=== PATIENT | male | born 1940 | race Caucasian/White ===

== ENCOUNTER 2016-05-22 21:54 | Emergency (ER) | payer OTHER ==
[2016-05-22 22:05] VITALS: BP 141/68
--- NOTE | 2016-05-22 22:26 | PROVIDER DOCUMENTATION ---
Addendum entered and electronically signed by Jackelin Cook Scribe 05/22/16 23: 16: Progress - PLAN OF CARE/RESULTS Progress/Plan/Lab Results: plan of care: labs Orders Category Date Time Status D-DIMER PL [COAG] Stat Lab 05/22/16 22:15 Completed Laboratory Tests 05/22/16 22:15 D-Dimer 0.26 Vital Signs - 24 hr 05/22/16 21:58 Temperature 98 F Pulse Rate 80 Respiratory 18 Rate Blood Pressure 141/68 O2 Sat by Pulse 98 Oximetry Pt given results and will be d/c home w/o rx to follow up with PCP. Pt verbally understood instructions. PT remained clinically stable throughout the course of the ED stay and will return if symptoms worsen. Original Note: HPI-Musculoskeletal Pain/Inj - GENERAL Source: patient - HX OF PRESENT ILLNESS-MUSKULOSKELTAL Quality of Pain: reports: aching Severity in ED: mild Onset/Duration: other (1.5 weeks) Timing: still present Modifying Factors: improves with: nothing Any recent injury?: No Locality of Occurance: Home Similar Symptoms Previously?: No Recently seen or treated by another doctor?: No - LOWER EXTREMITY PAIN/INJURY Lower Extremities Pain: leg: left Context / Method of Injury: reports: unknown Associated Symptoms: reports: denies symptoms <Jackelin Cook - Last Filed: 05/22/16 22:20> <Rafael Lechuga - Last Filed: 05/22/16 23:07> - GENERAL Chief Complaint: Extremity Pain Stated Complaint: POSS BLOOD CLOT Time Seen by Provider: 05/22/16 22:20 - HX OF PRESENT ILLNESS-MUSKULOSKELTAL Nature of Presenting Problem: 76 year old M presents to the ED with a cc of left calf pain with an onset of 1.5 weeks ago. Pt states that the pain resolved this past weekend and then returned this afternoon. Pt has a hx of DVTs. PT saw PCP the day after pain began for URI symptoms but did not mention the leg pain. (Jackelin Cook) Review of Systems - Adult - REVIEW OF SYSTEMS - ADULT Constitutional: denies: chills, fever Eyes: reports: no symptoms reported Ears, Nose, Mouth & Throat: reports: no symptoms reported Cardiovascular: reports: no symptoms reported Respiratory: reports: no symptoms reported Gastrointestinal: denies: diarrhea, vomiting Genitourinary: reports: no symptoms reported Musculoskeletal: reports: muscle aches. denies: muscle weakness Integumentary: denies: skin sores/ulcer, skin thickening Neurological: reports: no symptoms reported Psychiatric: reports: no symptoms reported Endocrine: reports: no symptoms reported Hematologic/Lymphatic: reports: no symptoms reported Allergic/Immunologic: reports: no symptoms reported All Other Systems: Reviewed and Negative <Jackelin Cook - Last Filed: 05/22/16 22:20> Past History - Adult - PAST MEDICAL HISTORY-ADULT Review of Records: reports: Nursing Assessment Review, Medications Reviewed Major Childhood Illnesses: reports: denies history Cardiovascular: reports: blood clots Musculoskeletal: reports: cancer (right breast ) Other Conditions: reports: other (blood clots) - PRIOR SURGERIES/PROCEDURES Surgical/Procedure History: reports: hernia repair, breast (right breast ) - IMMUNIZATION STATUS Childhood Immunizations: See Nurse Assessment Flu Vaccine: See Nurse Assessment - SOCIAL HISTORY Smoking: non-smoker Substance Use: none/never Alcohol Use Frequency: never <Jackelin Cook - Last Filed: 05/22/16 22:20> Physical Exam-Injury Related - Physical Exam-Injury Related Initial Vital Signs Reviewed: Yes General Appearance: appears well, alert, no apparent distress Respiratory: chest non-tender, lungs clear, normal breath sounds Cardiovascular: normal peripheral pulses, regular rate, rhythm, no edema Abdominal Exam: non tender, soft Extremity: normal inspection. negative: calf tenderness Integumentary: normal color, warm/dry Psych/Mental Status: normal mood/affect, normal thought content, normal thought process, oriented x 3 <Jackelin Cook - Last Filed: 05/22/16 22:20> Departure <Jackelin Cook - Last Filed: 05/22/16 22:20> - Departure Time of Disposition Order: 23:06 Certified Medical Emergency: Emergent <Rafael Lechuga - Last Filed: 05/22/16 23:07> - Departure DIAGNOSIS: Calf pain Qualifiers: Laterality: left Qualified Code(s): M79.662 - Pain in left lower leg Disposition: HOME 01 Condition: Stable Additional Instructions: ED Follow Up Instructions: You have been treated by a care provider in the Emergency Department. These instructions are being provided to you so you can have an understanding of how to care for yourself upon discharge. Upon discharge from the Emergency Department, you are responsible for making arrangements for follow-up care by a physician of your choice. Take all prescribed medications as directed. Return to the Emergency Department immediately for any new or worsening symptoms. You may call the Physician Referral phone number at [phone] to obtain a list of Physicians who are taking new patients. Attestation - Scribe Verification/Attestation Scribe:: Jackelin Cook Acting as Scribe for:: Rafael Lechuga Scribe documention review:: This chart was documented by a scribe and accurately reflects the service the provider performed and the decisions made by the provider. <Jackelin Cook - Last Filed: 05/22/16 22:20> Physician Attestation
== END 2016-05-22 23:07 | disposition home or self-care (01) ==
LOC: P.ED 21:54
DX: M79.662 Pain in left lower leg (principal); Z86.718 Personal history of other venous thrombosis and embolism; M79.1 Myalgia; Z85.3 Personal history of malignant neoplasm of breast; Z79.899 Other long term (current) drug therapy; Z79.82 Long term (current) use of aspirin
CPT/HCPCS: 85379